=== PATIENT | female | born 1980 | race Caucasian/White ===

== ENCOUNTER → 2024-07-15 06:27 | Day surgery (SDC) | payer OTHER, SELFPAY ==
[2024-07-08 13:30] VITALS: BMI 24.2
[2024-07-08 13:58] LABS: % Basophils 0.8 % (0-2); % Eosinophils 1.5 % (0-6); % Immature Granulocytes 0.1 % (0-0.5); % Lymphocytes 27.4 % (20.5-51.1); % Monocytes 5.2 % (1.7-9.3); Absolute Basophils 0.1 10^3/uL (0-0.2); Absolute Eosinophils 0.1 10^3/uL (0-0.7); Absolute Lymphocytes 2.1 10^3/uL (1.2-3.4); Absolute Monocytes 0.4 10^3/uL (0.1-0.6); Absolute Neutrophils 4.9 10^3/uL (1.4-6.5); Hematocrit 36.4 % (37.0-47.0); Hemoglobin 12.5 g/dL (12.0-16.0); Mean Corp Hgb Conc. 34.3 g/dL (33.0-37.0); Mean Corpuscular Hgb 30.7 pg (27.0-31.0); Mean Corpuscular Volume 89.4 fL (81.0-99.0); Mean Platelet Volume 9.7 fL (7.4-10.4); Nucleated Red Blood Cells % 0 %; Platelet Count 266 10^3/uL (130-400); Red Blood Cell Count 4.07 10^6/uL (4.20-5.40); Red Cell Dist. Width 12.5 % (11.5-14.5); White Blood Cell Count 7.5 10^3/uL (4.8-10.8)
[2024-07-08 14:48] LABS: Blood Urea Nitrogen 16 mg/dl (7-17); Calcium 9.3 mg/dl (8.4-10.2); Carbon Dioxide 26 mmol/L (22-30); Chloride 103 mmol/L (98-107); Estimated Creatinine Clearance 78 ml/min; Glucose 80 mg/dl (70-99); Potassium 4.1 mmol/L (3.5-5.1); Sodium 140 mmol/L (135-145); eGFR > 60.00
[2024-07-08 15:05] LABS: Beta HCG Quantitative < 2.39 mIU/ml
[2024-07-15] VITALS (11 sets, daily range): BP systolic 93–119; BP diastolic 49–77; BMI 24.2
[2024-07-15] MEDS: NEURONTIN 300 MG PO (12:52)
[2024-07-15] MEDS: HEPARIN 5000 UNITS SC (12:53)
[2024-07-15] MEDS: TYLENOL 1000 MG PO (12:53)
[2024-07-15] MEDS: DILAUDID 0.5 MG IV (17:36)
[2024-07-15] MEDS: TYLENOL 650 MG PO (20:13)
--- NOTE | 2024-07-15 21:09 | SUR.PHASEII ---
patient able to void on toilet and then bladder scanned for 123ml. Voided again before discharge. IV dc'd and tolerated well. Denies pain nor nausea. Discharged via wheelchair to car with .
== END ==
LOC: SDS 06:27
PROVIDERS: ATTENDING PHYSICIAN Obstetrics & Gynecology; FAMILY PHYSICIAN Family Medicine
DX: N83.8 Other noninflammatory disorders of ovary, fallopian tube and broad ligament (principal); N92.0 Excessive and frequent menstruation with regular cycle; N94.6 Dysmenorrhea, unspecified
CPT/HCPCS: 58571; 88307; 36415; 80048; 84702; 85025; 86850; 86900; 86901

== ENCOUNTER → 2024-10-25 09:56 | Outpatient (REF) | payer OTHER, SELFPAY | LOC: WDC 09:56 | PROVIDERS: ATTENDING PHYSICIAN Obstetrics & Gynecology; FAMILY PHYSICIAN Family Medicine | DX: R92.8 Other abnormal and inconclusive findings on diagnostic imaging of breast (principal) | CPT/HCPCS: 76642; 77061; 77065 ==